=== PATIENT | male | born 1955 | race Asian ===

== ENCOUNTER 2018-07-02 13:44 | Inpatient (IN) | payer OTHER ==
[~2018-07-02] VITALS: Ht 175.3 cm; Wt 72.6 kg
[2018-07-02] MEDS ORDERED: LISINOPRIL-HCT1 EACH PO (14:08)
--- NOTE | 2018-07-02 14:48 | Diagnostic Imaging Report ---
EXAMINATION: CXR 2 VIEW - HOPD INDICATION: Weakness COMPARISON: None FINDINGS: AP view TUBES and LINES: None. LUNGS: Lungs are well inflated. Bandlike reticular opacity in the left upper lobe. No lobar consolidations or pulmonary edema. PLEURA: No pleural effusion or pneumothorax. HEART AND MEDIASTINUM: The cardiomediastinal silhouette is unremarkable.. BONES AND SOFT TISSUES: No acute osseous lesion. Soft tissues are unremarkable. UPPER ABDOMEN: No free air under the diaphragm. IMPRESSION: Indeterminate left upper lobe bandlike reticular opacity may reflect scarring, pneumonia, cannot exclude neoplasm. If patient is asymptomatic, recommend chest x-ray in 3 months to demonstrate stability. Otherwise, consider CT chest without contrast for further evaluation. Signed by: Dr. Nidia Ornelas M.D. on 07/02/2018 2:45 PM
--- NOTE | 2018-07-02 15:05 | NUR ---
RADIOLOGIST SPEAKING WITH DELGADO BARKER
--- NOTE | 2018-07-02 15:12 | Diagnostic Imaging Report ---
ADDENDUM #1 History:Weakness Comparison studies:None Technique: Axial images were obtained from the skull base to the vertex. Coronal and sagittal images reconstructed from the axial data. Intravenous contrast: None Dose modulation, iterative reconstruction, and/or weight based adjustment of the mA/kV was utilized to reduce the radiation dose to as low as reasonably achievable. Findings: Scalp/skull: No abnormalities. Extra-axial spaces: No masses. No fluid collections. Brain sulci: Mildly prominent. Ventricles: Mild compensatory dilatation. No hydrocephalus. Parenchyma: Small focal cortical based hypodensity at the right superior parietal lobule, without significant volume loss. Few hypodensities in the supratentorial white matter are small vessel ischemic changes. Cortical-based hypodensity at the left mid frontal gyrus with mild volume loss. No masses or hemorrhage. Sellar/suprasellar region: No abnormalities. Craniocervical junction: Patent foramen magnum. No Chiari one malformation. Incidental findings: Atherosclerotic calcifications in the carotid siphons . Mucosal thickening the bilateral ethmoid sinuses. Impression: Age indeterminant small infarct at the right superior parietal lobule. No intracranial hemorrhage. Chronic findings: 1. Mild generalized volume loss. 2. Mild supratentorial white matter small vessel ischemic changes. 3. 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 The above finding was reported and acknowledged by Dr. Seymour at 2:58 PM 07/02/2018 Signed by: DR Edwin Lees M.D. on 07/02/2018 3:57 PM ORIGINAL REPORT History:Weakness Comparison studies:None Technique: Axial images were obtained from the skull base to the vertex. Coronal and sagittal images reconstructed from the axial data. Intravenous contrast: None Dose modulation, iterative reconstruction, and/or weight based adjustment of the mA/kV was utilized to reduce the radiation dose to as low as reasonably achievable. Findings: Scalp/skull: No abnormalities. Extra-axial spaces: No masses. No fluid collections. Brain sulci: Mildly prominent. Ventricles: Mild compensatory dilatation. No hydrocephalus. Parenchyma: Small focal cortical based hypodensity at the left superior parietal lobule, without significant volume loss. Few hypodensities in the supratentorial white matter are small vessel ischemic changes. Cortical-based hypodensity at the left mid frontal gyrus with mild volume loss. No masses or hemorrhage. Sellar/suprasellar region: No abnormalities. Craniocervical junction: Patent foramen magnum. No Chiari one malformation. Incidental findings: Atherosclerotic calcifications in the carotid siphons . Mucosal thickening the bilateral ethmoid sinuses. Impression: Age indeterminant small infarct at the left superior parietal lobule. No intracranial hemorrhage. Chronic findings: 1. Mild generalized volume loss. 2. Mild supratentorial white matter small vessel ischemic changes. 3. 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 The above finding was reported and acknowledged by Dr. Seymour at 2:58 PM 07/02/2018 Signed by: DR Edwin Lees M.D. on 07/02/2018 3:08 PM
--- OUTSIDE RECORDS SUMMARY | 2018-07-02 15:46 | XMS REPORT ---
Author Author [facility] Address Unknown Phone Unavailable Care Team Providers Care Electronic Instrument Trades Worker Name Role Phone Roman SEYMOUR Unavailable Unavailable Problems This patient has no known problems. Allergies, Adverse Reactions, Alerts This patient has no known allergies or adverse reactions. Medications This patient has no known medications. Results Test Description Test Time Test Comments Text Results Atomic Results Result Comments CT BRAIN WO-HOPD 2018-07-02 14:59:00 [facility] [address] [address] Patient Name: AUSTIN BALDWIN MR #: [id number] : 1955 Age/Sex: 63/M Req #: [id number] Adm Physician: Ordered by: MUNIRA SEYMOUR MD Report #: [id number] Location: [facility] Room/Bed: Procedure: [id number] HOPD/CT BRAIN WO-HOPD Exam Date: Exam Time: REPORT STATUS: Signed History:Weakness Comparison studies:None Technique: Axial im ages were obtained from the skull base to the vertex. Coronal and sagittal images reconstructed from the axial data. Intravenous contrast: None Dose modulation, iterative reconstruction, and/or weight based adjustment of the mA/kV was utilized to reduce the radiation dose to as low as reasonably achievable. Findings: Scalp/skull: No abnormalities. Extra- axial spaces: No masses. No fluid collections. Brain sulci: Mildly prominent. Ventricles: Mild compensatory dilatation. No hydrocephalus. Parenchyma: Small focal cortical based hypodensity at the left superior parietal lobule, without significant volume loss. Few hypodensities in the supratentorial white matter are small vessel ischemic changes. Cortical-based hypodensity at the left mid frontal gyrus with mild volume loss. No masses or hemorrhage. Sellar/suprasellar region: No abnormalities. Craniocervical junction: Patent foramen magnum. No Chiari one malformation. Incidental f indings: Atherosclerotic calcifications in the carotid siphons . Mucosal thickening the bilateral ethmoid sinuses. Impression: Age indeterminant small infarct at the left superior parietal lobule. No intracranial hemorrhage. Chronic findings: 1. Mild generalized volume loss. 2. Mild supratentorial white matter small vessel ischemic changes. 3. 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 The above finding was reported and acknowledged by Dr. Seymour at 2:58 PM 07/02/2018 Signed by: DR Edwin Lees M.D. on 07/02/2018 3:08 PM Dictated By: EDWIN HILL MD [id number] Transcribed By: VIRGILIO on 07/02/18 1508 COPY TO: MUNIRA SEYMOUR MD [facility] 2018-07-02 14:43:[address] [address] Patient Name: AUSTIN BALDWIN MR #: [id number] : 1955 Age/Sex: 63/M Req #: [id number] Adm Physician: Ordered by: MUNIRA SEYMOUR MD Report #: [id number] Location: [facility] Room/Bed: Procedure: [id number] HOPD/CXR 2 VIEW - HOPD Exam Date: Exam Time: REPORT STATUS: Signed EXAMINATION: CXR 2 VIEW - HOPD INDICATION: Weaknes s COMPARISON: None FINDINGS: AP view TUBES and LINES: None. LUNGS: Lungs are well inflated. Bandlike reticular opacity in the left upper lobe. No lobar consolidations or pulmonary edema. PLEURA: No pleural effusion or pneumothorax. HEART AND MEDIASTINUM: The cardiomediastinal silhouette is unremarkable.. BONES AND SOFT TISSUES: No acute osseous lesion. Soft tissues are unremarkable. UPPER ABDOMEN: No free air under the diaphragm. IMPRESSION: Indeterminate left upper lobe bandlike reticular opacity may reflect scarring, pneumonia, cannot exclude neoplasm. If patient is asymptomatic, recommend chest x-ray in 3 months to demonstrate stability. Otherwise, consider CT chest without contrast for further evaluation. Signed by: Dr. Katerina Ash M.D. on 07/02/2018 2:45 PM Dictated By: KATERINA ASH MD 1445 Transcribed By: VIRGILIO on 07/02/18 1445 COPY TO: MUNIRA SEYMOUR MD
--- NOTE | 2018-07-02 15:50 | NUR ---
[facility] CALLED FOR TRANSPORT
--- NOTE | 2018-07-02 15:51 | NUR ---
SPOKE TO MATTHEW RAI FOR ACCEPTANCE
[2018-07-02] MEDS ORDERED: ASPIRIN 325 MG TAB EC PO ONE (16:00)
[2018-07-02 18:00] VITALS: BP 116/87
[2018-07-02] MEDS ORDERED: ACETAMINOPHEN 325 MG TAB PO PRN (18:30)
[2018-07-02] MEDS ORDERED: HYDRALAZINE HCL 20 MG/ML VIAL IV PRN (18:30)
[2018-07-02] MEDS ORDERED: ONDANSETRON HCL INJ 2MG/ML 2ML 2 MG/ML VIAL IV PRN (18:30)
[2018-07-02 19:00] VITALS: BP 114/90
[2018-07-02 20:00] VITALS: BP 106/84
[2018-07-02 21:04] VITALS: BP 121/86
[2018-07-02 22:00] VITALS: BP 105/82
[2018-07-02 23:00] VITALS: BP 113/76
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
[2018-07-02 23:58] LABS: CREATINE KINASE MB 1.2 ng/mL (0-5.0)
[2018-07-03] VITALS (20 sets, daily range): BP systolic 107–155; BP diastolic 75–109
[2018-07-03 04:50] LABS: BASOPHILS % 0.5 % (0.0-1.0); EOSINOPHILS # (AUTO) 0.4 (0.0-0.4); EOSINOPHILS % 7.1 % (0.0-6.0); HEMATOCRIT 45.2 % (38.2-49.6); HEMOGLOBIN 15.3 g/dL (14.0-18.0); LYMPHOCYTES # (AUTO) 1.8 (1.0-3.2); LYMPHOCYTES % 30.6 % (18.0-39.1); MEAN CORPUSCULAR HEMOGLOBIN 31.2 pg (28-32); MEAN CORPUSCULAR HGB CONC 33.8 g/dL (31-35); MEAN CORPUSCULAR VOLUME 92.1 fL (81-99); MONOCYTES # (AUTO) 0.7 (0.2-0.8); MONOCYTES % 11.5 % (4.4-11.3); NEUTROPHILS % 50.1 % (38.7-80.0); PLATELET COUNT 204 x10e3/uL (140-360); RED BLOOD COUNT 4.91 x10e6/uL (4.3-5.7)
[2018-07-03 05:06] LABS: CHOL/HDL RATIO 6.2 (3.9-4.7); MAGNESIUM 2.2 MG/DL (1.3-2.1)
[2018-07-03 05:10] LABS: ALANINE AMINOTRANSFERASE 33 IU/L (0-55); ALBUMIN 3.8 g/dL (3.5-5.0); ALBUMIN/GLOBULIN RATIO 0.8 (0.8-2.0); ALKALINE PHOSPHATASE 108 IU/L (40-150); ANION GAP 13.6 mmol/L (8-16); BLOOD UREA NITROGEN 16 mg/dL (7-26); BUN/CREATININE RATIO 14 (6-25); CALCIUM 10.1 mg/dL (8.4-10.2); CARBON DIOXIDE 27 mmol/L (22-29); CHLORIDE 103 mmol/L (98-107); CREATININE, SERUM 1.17 mg/dL (0.72-1.25); EST GLOMERULAR FILTRATION RATE > 60 ML/MIN (60-); GLUCOSE 97 mg/dL (74-118); POTASSIUM 5.6 mmol/L (3.5-5.1); SODIUM 138 mmol/L (136-145)
[2018-07-03 05:15] LABS: B-TYPE NATRIURETIC PEPTIDE2 25.5 pg/mL (0-100)
[2018-07-03 05:26] LABS: THYROID STIMULATING HORMONE 0.996 uIU/mL (0.350-4.940)
[2018-07-03] MEDS: FAMOTIDINE 20 MG TAB PO SCH ×2 (07:57→15:37)
[2018-07-03] MEDS: ASPIRIN 325 MG TAB PO SCH (09:00)
[2018-07-03] MEDS ORDERED: SOD POLYSTYRENE SULFONATE SUSP 15 GM/60 ML BTL PO ONE (09:30)
--- NOTE | 2018-07-03 10:00 | NUR ---
handheld telephone language line used to speak bulgarian to patient at all interactions.
--- NOTE | 2018-07-03 11:30 | NUR ---
dr. grace here to see patient. reviewed ct scan, is concerned about tuberculosis based on hx of tb, trouble sleeping, and low appetite. patient is from [facility]. patient to be placed on airborne precautions until bronchoscopy/biopsy tomorrow shows evidence ruling out tb.
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
--- NOTE | 2018-07-03 13:48 | Diagnostic Imaging Report ---
History: Headache, weakness Comparison studies: Head CT on 07/02/2018 Technique: Sagittal T2; axial DWI, FLAIR, MPGR, T1, Coronal FLAIR. Intravenous contrast: None Findings: Scalp: Normal in signal . No masses . Bone marrow: Normal in signal intensity. Extra-axial: No masses or fluid collections. Brain sulci: Appropriate for age. Ventricles: Normal in size . No hydrocephalus . Parenchyma: Acute, nonhemorrhagic, peripheral vascular insults (hyperintense on T2 FLAIR and associated with restricted diffusion) are centered in the right superior and inferior parietal lobules. An additional similar but smaller insult, near the hand motor area of the the right precentral gyrus at the vertex, probably explains patient's weakness. (series 4, image 23). Additional focal cortical and subcortical chronic insult in the left middle frontal gyrus are not associated with restricted diffusion. No masses, hemorrhage, acute or additional acute or chronic cortical ischemic insults. Suprasellar region: No abnormalities. Craniocervical junction: No abnormalities. Patent foramen magnum. No Chiari one malformation. Vessels: Normal flow-voids in the arteries and sinuses. IMPRESSION: 1. Focal, nonhemorrhagic peripheral right frontal precentral and parietal cortical insult at the vertex are presumed to be embolic to distal peripheral branches of the right MCA. 2. Chronic peripheral insults, in the left middle frontal gyrus at the vertex, may be have been embolic as well. 3. No additional intracranial abnormalities. Signed by: Dr. Sina Madden M.D. on 07/03/2018 1:45 PM
[2018-07-03] MEDS ORDERED: DEXTROSE 50% SYRINGE 50 ML IV PRN (14:00)
[2018-07-03] MEDS ORDERED: LISINOPRIL 10 MG TAB PO SCH (14:15)
[2018-07-03] MEDS: HYDROCHLOROTHIAZIDE 25 MG TAB PO SCH (15:36)
[2018-07-03] MEDS ORDERED: ONDANSETRON HCL 4 MG ORAL DISINTEGRATING TAB PO PRN (15:45)
[2018-07-03] MEDS: INSULIN REGULAR, HUMAN 100 UNIT/1 ML 3ML VIAL SQ SCH ×2 (15:48→21:39)
[2018-07-03] MEDS ORDERED: ENOXAPARIN SOD INJ 40 MG/0.4 ML SYR SC SCH (17:00)
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
--- NOTE | 2018-07-03 20:50 | Consultation ---
DATE OF CONSULTATION: Cardiology Consultation REASON FOR CONSULTATION: Abnormal cardiac enzymes. HISTORY OF PRESENT ILLNESS: This is a 63-year-old Thai man, who has been living in [facility] for approximately one year. He has a history of tuberculosis, which was treated and hypertension. He denies any cardiac history. His history taking was performed through his daughter at bedside. He denies any chest pain, shortness of breath, or palpitations. REVIEW OF SYSTEMS: A 12-point review of system was conducted, is negative otherwise as stated above in the HPI. PAST MEDICAL HISTORY: As stated above in the HPI. PAST SURGICAL HISTORY: None recent. PAST FAMILY HISTORY: No premature coronary artery disease or sudden cardiac . SOCIAL HISTORY: Prior tobacco use. ALLERGIES: NO KNOWN DRUG ALLERGIES. MEDICATIONS: See medications reconciliation form. PHYSICAL EXAMINATION: VITAL SIGNS: Temperature 98.5, heart rate 72, respirations 18, blood pressure is 123/90, and oxygen saturation is 100% on room air. GENERAL: Well appearing, well built, in no apparent distress. Alert and oriented x3. HEAD: Normocephalic, atraumatic. EYES: Extraocular muscles intact. Conjunctivae clear. NECK: No JVD. No bruits. CARDIOVASCULAR: Regular rate and rhythm. No murmurs. LUNGS: There are diminished breath sounds at the bases and at left apex. ABDOMEN: Soft, nontender, and nondistended. EXTREMITIES: No clubbing, cyanosis, or edema. VITAL SIGNS: 2+ pulses. SKIN: Warm, dry, and intact. NEUROLOGIC: No focal deficits noted. LABORATORY DATA: All reviewed, negative cardiac enzymes x1. A 12-lead electrocardiogram shows normal sinus rhythm with incomplete left bundle-branch block. LDL is 118, total cholesterol is 222, and triglycerides 339. IMPRESSION: 1. Weakness. 2. Tuberculosis, status post treatment. 3. Lung mass. 4. Hyperlipidemia. RECOMMENDATIONS: The patient has negative cardiac enzymes on presentation here. He does have an abnormal electrocardiogram showing incomplete left bundle-branch block. He does have elevated cholesterol, which will be treated with atorvastatin. We will check a 2D echocardiogram. Further recommendations to follow. Toy Grayson DO BM/MODL /[id number]
[2018-07-03] MEDS ORDERED: ATORVASTATIN 20 MG TAB PO SCH ×2 (21:00)
[2018-07-04] VITALS (20 sets, daily range): BP systolic 88–117; BP diastolic 70–85
[2018-07-04 04:49] LABS: BASOPHILS % 0.5 % (0.0-1.0); EOSINOPHILS # (AUTO) 0.3 (0.0-0.4); EOSINOPHILS % 4.4 % (0.0-6.0); HEMATOCRIT 43.9 % (38.2-49.6); HEMOGLOBIN 14.6 g/dL (14.0-18.0); LYMPHOCYTES % 27.2 % (18.0-39.1); MEAN CORPUSCULAR HEMOGLOBIN 30.8 pg (28-32); MEAN CORPUSCULAR HGB CONC 33.3 g/dL (31-35); MEAN CORPUSCULAR VOLUME 92.6 fL (81-99); MONOCYTES # (AUTO) 0.7 (0.2-0.8); MONOCYTES % 9.5 % (4.4-11.3); NEUTROPHILS # (AUTO) 4.2 (2.1-6.9); NEUTROPHILS % 58.1 % (38.7-80.0); PLATELET COUNT 219 x10e3/uL (140-360); RED BLOOD COUNT 4.74 x10e6/uL (4.3-5.7); RED CELL DISTRIBUTION WIDTH 12.8 % (11.7-14.4)
[2018-07-04 05:09] LABS: CALCIUM 9.7 mg/dL (8.4-10.2); CREATININE, SERUM 1.27 mg/dL (0.72-1.25); MAGNESIUM 2.3 MG/DL (1.3-2.1)
[2018-07-04] MEDS: FAMOTIDINE 20 MG TAB PO SCH ×3 (07:30→16:00)
[2018-07-04] MEDS: INSULIN REGULAR, HUMAN 100 UNIT/1 ML 3ML VIAL SQ SCH ×4 (07:30→20:54)
[2018-07-04] MEDS: HYDROCHLOROTHIAZIDE 25 MG TAB PO SCH (08:18)
[2018-07-04] MEDS: ASPIRIN 325 MG TAB PO SCH ×2 (08:18→09:00)
[2018-07-04] MEDS ORDERED: LISINOPRIL 20 MG TAB PO SCH (09:00)
--- NOTE | 2018-07-04 09:39 | NUR ---
ST Note: Order for bedside swallow eval noted. Per Paulina RN, pt NPO for bronch. Will defer eval until tomorrow 07/05/18.
[2018-07-04] MEDS ORDERED: ACETYLCYSTEINE 200 MG/ML 4ML VIAL ONE (12:59)
[2018-07-04] MEDS ORDERED: LIDOCAINE HCL 4% 50 ML BTL ONE (12:59)
[2018-07-04] MEDS ORDERED: LIDOCAINE HCL 2% 30 ML TUBE ONE (13:00)
[2018-07-04] MEDS ORDERED: OXYMETAZOLINE HCL 0.05% NAS 1 SPRAY BTL ONE (13:00)
[2018-07-04] MEDS ORDERED: ENOXAPARIN SOD INJ 40 MG/0.4 ML SYR SC SCH (15:15)
[2018-07-04] MEDS: ENOXAPARIN INJ 80 MG/0.8 ML SYR SC SCH (16:00)
[2018-07-04] MEDS ORDERED: WARFARIN SOD 5 MG TAB PO SCH (16:00)
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
--- NOTE | 2018-07-04 18:00 | NUR ---
PATIENT TRANSFERRED FROM ICU [id number] TO ROOM 288 PER WHEELCHAIR AT 1759. PATIENT IS AWAKE, ALERT, AND IN STABLE CONDITION WITH NO S/S OF RESPIRATORY DISTRESS. PATIENT DENIES ANY PAIN. AND DAUGHTER PRESENT AT BEDSIDE. CALL LIGHT IS WITHIN REACH, PATIENT INSTRUCTED TO CALL FOR ASSISTANCE NEEDED.
[2018-07-04] MEDS ORDERED: LIDOCAINE HCL 2% LOCAL INJ 5 ML SDV VIAL INJ ONE (18:08)
[2018-07-04] MEDS ORDERED: SEVOFLURANE INHAL SOLN 250 ML PEN BTL ONE (18:08)
[2018-07-04] MEDS ORDERED: ONDANSETRON HCL INJ 2MG/ML 2ML 2 MG/ML VIAL ONE (18:08)
[2018-07-04] MEDS ORDERED: PHENYLEPHRINE HCL 1% 10 MG/ML VIAL ONE (18:08)
[2018-07-04] MEDS ORDERED: PROPOFOL IV EMULSION 10 MG/ML 20 ML VIAL ONE (18:08)
--- NOTE | 2018-07-04 19:28 | NUR ---
PATIENT IS IN STABLE CONDITION WITH NO S/S OF RESPIRATORY DISTRESS. NO PAIN VOICED. URINAL PROVIDED TO PATIENT FOR EVENING TIME. CALL LIGHT IS WITHIN REACH, PATIENT INSTRUCTED TO CALL FOR ASSISTANCE NEEDED. BEDSIDE REPORT GIVEN TO ONCOMING NURSE.
--- NOTE | 2018-07-04 19:35 | Progress Note ---
DATE: SUBJECTIVE: The patient is feeling well. Denies any chest pain or shortness of breath. OBJECTIVE: VITAL SIGNS: Temperature is 97.5, heart rate is 77, respirations 16, blood pressure is 117/82, and oxygen saturation 99% on room air. GENERAL: Well appearing, well built, in no apparent distress. Alert and oriented x3. HEAD: Normocephalic, atraumatic. LUNGS: Diminished breath sounds at the apex. CARDIOVASCULAR: Regular rate and rhythm. No murmurs. ABDOMEN: Soft, nontender, and nondistended. CARDIOVASCULAR MEDICATIONS: Reviewed. LABORATORY DATA: Reviewed. Creatinine 1.27. IMAGING: MRI of the brain shows a focal nonhemorrhagic right peripheral frontal cortical insult with chronic peripheral insults. A 2D echocardiogram revealed severe reduction in systolic function with estimated ejection fraction approximately 20% with no significant valvular abnormalities. IMPRESSION: 1. Acute likely on chronic systolic congestive heart failure with an ejection fraction less than 20%. 2. Cerebrovascular accident. 3. Abnormal electrocardiogram. 4. Hypertension. 5. Hyperlipidemia. RECOMMENDATIONS: The patient has an acute cerebrovascular accident, likely embolic from the left ventricle. We will try to get a Definity echocardiogram study to assess for left ventricular thrombus. Continue current cardiovascular medications. Discussed with primary team about anticoagulation. The patient likely will need cardiac catheterization to assess for coronary artery disease given his risk factors and low ejection fraction. DO ALEXX Martínez/MODL /[id number]
--- NOTE | 2018-07-04 19:46 | NUR ---
RECEIVED PT IN BED AOX3 .NO C/P PT IS STABLE .FAMILY AT THE BEDSIDE AND DAUGHTER TRANSLATED WHAT HE SAID .CALL LIGHT WITH IN REACH .CONTINUE TO MONITOR
[2018-07-04] MEDS ORDERED: MIDAZOLAM HCL 2 MG/2 ML VIAL ONE (19:48)
[2018-07-04] MEDS ORDERED: FENTANYL CITRATE/PF 100MCG/2 ML INJ ONE (19:48)
[2018-07-04] MEDS: ATORVASTATIN 40 MG TAB PO SCH (20:54)
--- NOTE | 2018-07-04 21:00 | Operative Report ---
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 POSTOPERATIVE DIAGNOSIS: Bronchial polyp in the right mainstem bronchus. CONSENT: Consent was obtained from the patient. ANESTHESIA: Anesthesia provided MAC sedation with laryngeal mask airway. DESCRIPTION OF THE PROCEDURE: The patient was placed in a supine position. A laryngeal mask airway was used to secure the airway. The scope was introduced through the laryngeal mask airway. The upper airway and glottis were normal. The trachea mucosa appeared normal. The left tracheobronchial tree was examined. The left lower lobe and left upper lobe were all normal to the subsegmental level. There were no endobronchial lesions. Washings were obtained from the left upper lobe. Brushing for microbiology was also obtained from the left upper lobe. The scope was then repositioned into the right tracheobronchial tree. The patient had a benign-appearing clear looking polyp in the right mainstem bronchus. There were no other endobronchial lesions in the right upper lobe, right middle lobe, or right lower lobe. Endobronchial biopsies of the endobronchial lesion were obtained x3. Cytology brushing was then obtained. Washings were also done of the right upper lobe. ESTIMATED BLOOD LOSS: None. COMPLICATIONS: None. Edilberto Crenshaw MD H/MODL /[id number]
[2018-07-05] VITALS (7 sets, daily range): BP systolic 109–136; BP diastolic 64–82
--- NOTE | 2018-07-05 06:00 | NUR ---
PT RESTED DURING THE NIGHT .DENIES PAIN NO ACUTE DISTRESS NOTED .CALL LIGHT WITH IN REACH.CONTINUE TO MONITOR
[2018-07-05] MEDS: ENOXAPARIN INJ 80 MG/0.8 ML SYR SC SCH ×2 (06:03→17:04)
[2018-07-05 06:52] LABS: BASOPHILS % 0.5 % (0.0-1.0); EOSINOPHILS # (AUTO) 0.3 (0.0-0.4); EOSINOPHILS % 4.7 % (0.0-6.0); HEMATOCRIT 42.1 % (38.2-49.6); HEMOGLOBIN 14.2 g/dL (14.0-18.0); MEAN CORPUSCULAR HEMOGLOBIN 31.1 pg (28-32); MEAN CORPUSCULAR HGB CONC 33.7 g/dL (31-35); MEAN CORPUSCULAR VOLUME 92.1 fL (81-99); MONOCYTES # (AUTO) 0.6 (0.2-0.8); MONOCYTES % 9.6 % (4.4-11.3); NEUTROPHILS # (AUTO) 3.2 (2.1-6.9); NEUTROPHILS % 52.9 % (38.7-80.0); PLATELET COUNT 201 x10e3/uL (140-360); RED BLOOD COUNT 4.57 x10e6/uL (4.3-5.7); RED CELL DISTRIBUTION WIDTH 12.9 % (11.7-14.4)
--- NOTE | 2018-07-05 06:59 | NUR ---
PATIENT IS AWAKE AND IN STABLE CONDITION WITH NO S/S OF RESPIRATORY DISTRESS. NO PAIN VOICED. CALL LIGHT IS WITHIN REACH, PATIENT INSTRUCTED TO CALL FOR ASSISTANCE NEEDED.
[2018-07-05 07:05] LABS: INR 1.09; PROTHROMBIN TIME 14.6 seconds (11.9-14.5)
--- NOTE | 2018-07-05 07:10 | NUR ---
REPORT GIVEN TO THE ONCOMING NURSE
[2018-07-05 07:23] LABS: CALCIUM 9.4 mg/dL (8.4-10.2); CREATININE, SERUM 1.31 mg/dL (0.72-1.25); MAGNESIUM 2.4 MG/DL (1.3-2.1)
[2018-07-05] MEDS: INSULIN REGULAR, HUMAN 100 UNIT/1 ML 3ML VIAL SQ SCH ×4 (07:30→20:30)
[2018-07-05] MEDS: FAMOTIDINE 20 MG TAB PO SCH ×2 (08:54→17:03)
[2018-07-05] MEDS: HYDROCHLOROTHIAZIDE 25 MG TAB PO SCH (08:54)
[2018-07-05] MEDS: ASPIRIN 325 MG TAB PO SCH (08:54)
--- NOTE | 2018-07-05 13:45 | NUR ---
WENT TO SEE PT TO GIVE SELF PAY PACKET WITH [employer]. DAUGHTER IN [place] HAS BENEFITS WITH [employer], GOT COPY OF CARD AND TOOK TO BUSINESS OFFICE. PT DAUGHTER STATES RENEWED June BUT HAVE NOT RECEIVED NEW CARD. GAVE RESOURCES SINCE DAUGHTER SPOKE OF FIXED INCOME TO FOLLOW UP IN COMMUNITY TO SEE IF QUALIFY.
[2018-07-05] MEDS ORDERED: WARFARIN SOD 5 MG TAB PO SCH (17:00)
--- NOTE | 2018-07-05 19:17 | NUR ---
PATIENT IS IN STABLE CONDITION WITH NO S/S OF RESPIRATORY DISTRESS. NO PAIN VOICED. BED ALARM ON. CALL LIGHT IS WITHIN REACH, PATIENT INSTRUCTED TO CALL FOR ASSISTANCE NEEDED. BEDSIDE REPORT GIVEN TO ONCOMING NURSE.
--- NOTE | 2018-07-05 19:25 | NUR ---
RECEIVED PT IN BED AOX3 .NO ACUTE DISTRESS NOTED .KELLY PAIN .CALL LIGHT WITH IN REACH.CONTINUE TO MONITOR
[2018-07-05] MEDS: ATORVASTATIN 40 MG TAB PO SCH (20:30)
--- NOTE | 2018-07-05 21:10 | Progress Note ---
DATE: Cardiology Progress Note SUBJECTIVE: The patient is feeling well. Denies any chest pain or shortness of breath. OBJECTIVE: VITAL SIGNS: Temperature is 98.2, heart rate is 62, respirations are 20, blood pressure is 105/71, and oxygen saturation is 100% on room air. GENERAL: Well-appearing, well-built, in no apparent distress. CARDIOVASCULAR: Regular rate and rhythm. No murmurs. LUNGS: Clear to auscultation. ABDOMEN: Soft, nontender, nondistended. EXTREMITIES: No edema. CARDIOVASCULAR MEDICATIONS: Reviewed. LABORATORY DATA: Creatinine 1.3. IMPRESSION: 1. Acute on chronic systolic congestive heart failure. 2. Cerebrovascular accident. 3. Abnormal electrocardiogram. 4. Hypertension. 5. Hyperlipidemia. RECOMMENDATIONS: The patient likely had his cerebrovascular accident from embolic sources from his left ventricle. The patient will require cardiac catheterization to evaluate his coronary anatomy, given severe left ventricular systolic dysfunction. We will avoid MESERET inhibitor initiation at this point in time given rise in his creatinine. We will start beta blockers. Toy Grayson DO BM/MODL /[id number]
[2018-07-06] VITALS (8 sets, daily range): BP systolic 125–140; BP diastolic 79–88
--- NOTE | 2018-07-06 05:51 | NUR ---
PT RESTED DURING THE SHIFT DENIES PAIN .REFUSED THE BATH AND BED ALARM.CALL LIGHT WITH IN REACH .CONTINUE TO MONITOR
[2018-07-06 06:53] LABS: INR 2.05; PROTHROMBIN TIME 23.8 seconds (11.9-14.5)
[2018-07-06 06:59] LABS: CALCIUM 9.9 mg/dL (8.4-10.2); CREATININE, SERUM 1.36 mg/dL (0.72-1.25); PHOSPHORUS 3.4 MG/DL (2.3-4.7)
--- NOTE | 2018-07-06 07:11 | NUR ---
REPORT GIVEN TO THE ON COMING NURSE
[2018-07-06] MEDS: INSULIN REGULAR, HUMAN 100 UNIT/1 ML 3ML VIAL SQ SCH ×4 (07:30→21:32)
[2018-07-06] MEDS: ASPIRIN 325 MG TAB PO SCH (09:27)
[2018-07-06] MEDS: FAMOTIDINE 20 MG TAB PO SCH ×3 (09:27→16:17)
[2018-07-06] MEDS: CARVEDILOL 3.125 MG TAB PO SCH ×2 (09:28→16:18)
[2018-07-06] MEDS: HYDROCHLOROTHIAZIDE 25 MG TAB PO SCH (09:33)
--- NOTE | 2018-07-06 10:40 | NUR ---
Called Dr. Teresa Grayson, clarified order For Lovenox am dose, received orders to give today's dose morning dose of Lovenox, and Hold tonight's dose for heart catheterization tomorrow.
[2018-07-06] MEDS ORDERED: ENOXAPARIN INJ 80 MG/0.8 ML SYR SC ONE (12:30)
[2018-07-06] MEDS ORDERED: BISACODYL 5 MG TAB EC PO ONE (14:45)
[2018-07-06] MEDS ORDERED: PHYTONADIONE 10 MG/ML AMP IM ONE (15:00)
[2018-07-06] MEDS ORDERED: PHYTONADIONE 1 MG/0.5 ML AMP IM ONE (15:00)
--- NOTE | 2018-07-06 16:52 | NUR ---
Made Dr. Stefania Carrasco's DIRECTOR OF EDUCATION AND TRAINING aware orders received by Dr. Teresa Grayson hold warfarin, until further notice and not to give Vitamin K.
[2018-07-06] MEDS ORDERED: WARFARIN SOD 5 MG TAB PO SCH (17:00)
--- NOTE | 2018-07-06 19:15 | NUR ---
Bedside rounds completed with morning nurse. Pt alert to name. Speaks Maldivian. Lying supine in bed HOB 30 degrees. Denies. pain at this time. Call taylor within reach. Will continue to monitor.
--- NOTE | 2018-07-06 20:00 | NUR ---
Informed consent signed via translation line. Pt verbalized understanding. No further questions or concerns. Call taylor within reach.
--- NOTE | 2018-07-06 20:21 | Progress Note ---
DATE: Cardiology Progress Note SUBJECTIVE: The patient is feeling well. Denies any chest pain or shortness of breath. OBJECTIVE: VITAL SIGNS: Temperature is 97.1, heart rate is 61, respirations are 20, blood pressure is 140/87, ox saturation 100% on room air. GENERAL: Well-appearing, well-built, no apparent distress. CARDIOVASCULAR: Regular rate and rhythm. LUNGS: Clear to auscultation. ABDOMEN: Soft, nontender, nondistended. EXTREMITIES: No edema. LABORATORY DATA: Reviewed. Hemoglobin 14.2, creatinine 1.36. INR is 2.05. IMPRESSION: 1. Acute on chronic systolic congestive heart failure. 2. Cerebral vascular accident. 3. Abnormal electrocardiogram. 4. Hypertension. 5. Hyperlipidemia. RECOMMENDATIONS: We will proceed with cardiac catheterization tomorrow as given severe left ventricular systolic function. Hold anticoagulation at this point in time. We will require MESERET inhibitor initiation, however, we will hold at this point in time given rise in his creatinine. Continue Coreg. Toy Grayson DO BM/MODL /[id number]
[2018-07-06] MEDS: ATORVASTATIN 40 MG TAB PO SCH (21:25)
[2018-07-07] VITALS (19 sets, daily range): BP systolic 112–146; BP diastolic 66–99
--- NOTE | 2018-07-07 03:25 | NUR ---
Labs drawn for 0300 blood work, Pt tolerated well.
[2018-07-07 03:33] LABS: BASOPHILS % 0.3 % (0.0-1.0); EOSINOPHILS # (AUTO) 0.3 (0.0-0.4); EOSINOPHILS % 5.3 % (0.0-6.0); HEMATOCRIT 43.4 % (38.2-49.6); HEMOGLOBIN 14.9 g/dL (14.0-18.0); LYMPHOCYTES # (AUTO) 1.7 (1.0-3.2); LYMPHOCYTES % 28.6 % (18.0-39.1); MEAN CORPUSCULAR HEMOGLOBIN 30.9 pg (28-32); MEAN CORPUSCULAR HGB CONC 34.3 g/dL (31-35); MONOCYTES # (AUTO) 0.5 (0.2-0.8); MONOCYTES % 8.8 % (4.4-11.3); NEUTROPHILS # (AUTO) 3.4 (2.1-6.9); NEUTROPHILS % 56.8 % (38.7-80.0); PLATELET COUNT 204 x10e3/uL (140-360); RED BLOOD COUNT 4.82 x10e6/uL (4.3-5.7); RED CELL DISTRIBUTION WIDTH 12.6 % (11.7-14.4)
[2018-07-07 03:51] LABS: BLOOD UREA NITROGEN 23 mg/dL (7-26); BUN/CREATININE RATIO 20 (6-25); CALCIUM 9.7 mg/dL (8.4-10.2); CARBON DIOXIDE 27 mmol/L (22-29); CHLORIDE 97 mmol/L (98-107); CREATININE, SERUM 1.13 mg/dL (0.72-1.25); EST GLOMERULAR FILTRATION RATE > 60 ML/MIN (60-); GLUCOSE 106 mg/dL (74-118); MAGNESIUM 2.2 MG/DL (1.3-2.1); SODIUM 134 mmol/L (136-145)
[2018-07-07 06:34] LABS: INR 2.45; PROTHROMBIN TIME 27.3 seconds (11.9-14.5)
[2018-07-07] MEDS: FAMOTIDINE 20 MG TAB PO SCH ×2 (07:30→17:49)
[2018-07-07] MEDS: INSULIN REGULAR, HUMAN 100 UNIT/1 ML 3ML VIAL SQ SCH ×4 (07:30→21:00)
[2018-07-07] MEDS: HYDROCHLOROTHIAZIDE 25 MG TAB PO SCH (08:56)
[2018-07-07] MEDS: ASPIRIN 325 MG TAB PO SCH (08:56)
[2018-07-07] MEDS: CARVEDILOL 3.125 MG TAB PO SCH ×2 (08:56→17:49)
[2018-07-07] MEDS ORDERED: VERAPAMIL HCL 2.5 MG/ML 2 ML VIAL ONE ×2 (09:15→12:23)
[2018-07-07] MEDS ORDERED: FENTANYL CITRATE/PF 100MCG/2 ML INJ ONE ×2 (09:15→12:24)
[2018-07-07] MEDS ORDERED: LIDOCAINE HCL 2% LOCAL 20 ML VIAL ONE ×2 (09:15→12:24)
[2018-07-07] MEDS ORDERED: MIDAZOLAM HCL 2 MG/2 ML VIAL ONE ×2 (09:15→12:24)
[2018-07-07] MEDS ORDERED: HEPARIN SOD/SOD CHLORIDE 2,000 ML ONE ×2 (09:16→12:24)
[2018-07-07] MEDS ORDERED: IOPAMIDOL 370 MG/ML 200 ML INFUS..BTL INJ ONE ×2 (09:16→12:24)
[2018-07-07] MEDS ORDERED: SODIUM CHLORIDE 0.9% 1000ML 1,000 ML ONE ×2 (09:16→12:25)
--- NOTE | 2018-07-07 09:40 | NUR ---
Patient left the floor for qc lab technician
[2018-07-07] MEDS ORDERED: HEPARIN SOD (PORCINE) 1000 UNIT/ML 30ML ONE (12:23)
[2018-07-07] MEDS ORDERED: NITROGLYCERIN/D5W 200 MCG/ML 250 ML ONE (12:25)
--- NOTE | 2018-07-07 14:09 | NUR ---
1409 Received pt in Rm #9 Handoff from DEANNA Bailey Identifierx2. Back to baseline orientation. Received 1versed and 25mg Fentanyl. 9000heparin 1346 Act 448. Pt had [facility] Dr Kenan Raymond with IVUS. Rt TR band approach noted w/o gross signs of pain,pallor. Bilateral PP present x4Dp/PT Doppler only. Bilateral feet cool to touch.Findings discussed with family per MD. Monitor NSR. Respiration regular on RA. Sats 100%.Abdomen soft and non tender denies necessity to defecate or urinate. Remains NPO. Rt forearm 18g iv ,500cc NS infusing at 100cchr. No signs of pain infiltration.Family remain at bedside. Denies c/o CP or SOB. Pt and family speak Cantonese /Upper Sorbian dialect and require [employer] communication line. ds/rn
--- NOTE | 2018-07-07 14:45 | NUR ---
[address] Kenan larson to give finger food tray. Awaiting disposition of care. NO gross signs pain,pallor,pressure or dysrhythmia. TR band titration initiated (12cc Balloon) -2cc Positive 10cc Adequate radial pulse. No signs of hematoma or bleeding. ds/rn
--- NOTE | 2018-07-07 16:09 | NUR ---
Patient is still off the floor in laboratory technician
--- NOTE | 2018-07-07 16:40 | NUR ---
1640 Dr Grayson with hand held language line [id number] did Discuss with Daughter and Pt at bedside all apparent question answered completely regarding POC and transfer of pt to higher level of care.steel division supervisor Altaf HUERTA notified and MOT in progress. juan/kimberley
--- NOTE | 2018-07-07 16:45 | NUR ---
1645pm TR band titration completed.(12c air removed from balloon) Sterile 2x2 dressing with Tegaderm and Coban in place with arm splint. Positive radial pulse. Tr band an post teaching completed and copied of teaching aid on chart sign by family member. Aware of importance not to use right arm. Phoned report to Olivia HUERTA floor nurse Tel on pt and transfer per bed ds/rn
[2018-07-07] MEDS ORDERED: WARFARIN SOD 5 MG TAB PO SCH (17:00)
--- NOTE | 2018-07-07 17:00 | NUR ---
1700 Transferred pt back to floor care with face to face handoff to Melody HUERTA. Aware of disposition issues. Daughter at bedside and case management being made aware of transfer per Olivia HUERTA.Vs stable Rt TRband off with stasis achieved at 1645pm. Co band and splint in place. Pt and family aware of importance to keep wrist splint on and call for help. Left pt room with RN at bedside care. Side railsup,call light at bedside and bed in low position. Pt with tele on. Report to telemetry room ,SR and awaiting transfer to higher level for surgical assessment per Dr Grayson request. ds/rn
--- NOTE | 2018-07-07 17:04 | NUR ---
Received report from laboratory equipment cleaner, spoke to DEANNA Rene. Patient will be coming to room 288. It was reported by DEANNA Rene that patient is going to need to be transferred to a higher level of care for bypass surgery but Dr. Grayson is working on finding accepting surgeon. Will notify electrician apprentice powerhouse.
--- NOTE | 2018-07-07 19:10 | NUR ---
Completed rounds with morning nurse. Pt alert to name. Speaks [place]ib[place]ian. Sitting at bedside in recliner. Cantu-Nicholson Faces pain scale, no pain noted. Call taylor within reach. Will continue to monitor.
--- NOTE | 2018-07-07 19:16 | Progress Note ---
DATE: Cardiology Progress Note SUBJECTIVE: The patient is feeling well. Denies any chest pain or shortness of breath. OBJECTIVE: VITAL SIGNS: Temperature is 96, heart rate 76, respirations 20, blood pressure is 121/94, and oxygen saturation 99% on room air. GENERAL: Well-appearing, well-built, no apparent distress. CARDIOVASCULAR: Regular rate and rhythm. LUNGS: Clear to auscultation. ABDOMEN: Soft, nontender, nondistended. EXTREMITIES: No edema. LABORATORY DATA: Reviewed. Coronary angiography revealed significant dissection throughout the proximal to mid LAD involving a medium to large caliber diagonal branch. IMPRESSION: 1. Acute on chronic systolic congestive heart failure. 2. Cerebrovascular accident. 3. Spontaneous coronary artery dissection. 4. Hypertension. 5. Hyperlipidemia. RECOMMENDATIONS: The patient has a complex anatomy on IVUS imaging. I feel stenting likely will occlude the diagonal branch which is a medium to large caliber vessel. Given his left ventricular systolic dysfunction, coronary artery disease, and presumed left ventricular thrombus, the patient likely would benefit greater from bypass surgery rather than medical management. Continue aspirin. Resume anticoagulation. Hold warfarin at this point in time and anticoagulate with Lovenox alone. Continue Coreg and we will initiate MESERET inhibitors soon. The patient likely will need to be transferred to either [facility] or [facility] given the fact that he is unfunded. We will continue to follow along with. DO ALEXX Martínez/ELTON /[id number]
[2018-07-07] MEDS: ATORVASTATIN 40 MG TAB PO SCH (21:00)
[2018-07-08] VITALS: BP 127/75
--- NOTE | 2018-07-08 00:23 | Operative Report ---
DATE OF PROCEDURE: SURGEON: Toy Grayson DO PROCEDURES PERFORMED: 1. Conscious sedation, 30 minutes. 2. Selective coronary angiography x2. 3. Intravascular ultrasound. 4. Percutaneous transluminal angioplasty of the left anterior descending coronary artery. PREPROCEDURE DIAGNOSIS: Acute congestive heart failure. POSTPROCEDURE DIAGNOSIS: Spontaneous coronary artery dissection, likely chronic. ESTIMATED BLOOD LOSS: Less than 20 mL. SPECIMENS REMOVED: None. PROCEDURE IN DETAIL: After informed consent was obtained, the patient was brought to the cardiac catheterization laboratory in a fasting and nonsedated state. Bilateral groins and right wrist were prepped and draped in the usual sterile fashion. The right wrist was anesthetized with local anesthesia with lidocaine. Using micropuncture needle, the right radial artery was accessed via modified Seldinger technique and a 6-Marshallese sheath was placed. Diagnostic coronary angiography was performed using a TIG catheter. This revealed significant lesion in the LAD and further interrogation was performed. The left main was cannulated with an XB LAD 3 guide catheter. Diagnostic imaging revealed either a spontaneous dissection or thrombus. Given the fact that the patient has an LV thrombus, distal embolization was considered differential diagnosis for the lesion. I crossed a Luge wire into the first diagonal branch and a Whisper wire into the distal LAD. I attempted a manual aspiration thrombectomy without success. I performed balloon angioplasty with no resolution of the hazy lesion in the LAD and diagonal. I performed intravascular ultrasound, which revealed a true and false lumen. The wire was within the true lumen and there was a chronic septum in between the two lumens. At this time, the decision was made to not further intervene on the lesion. All wires were removed. Hemostasis was achieved via TR band. The patient tolerated the procedure well with no immediate complications, transferred back to his room in stable condition. PROCEDURE FINDINGS: 1. Left main coronary artery is patent without significant disease. 2. The proximal to midportion of the LAD is hazy with linear radiolucency, which involves the takeoff of a medium caliber diagonal branch. 3. The left circumflex coronary artery provides two obtuse marginal vessels with diffuse luminal irregularities. 4. The right coronary artery is a large dominant vessel with a large posterolateral branching network. There is sluggish flow in the distal RCA. IMPRESSION: 1. Coronary artery dissection involving left anterior descending and diagonal branch. 2. Congestive heart failure with systolic dysfunction. 3. Left ventricular thrombus. RECOMMENDATIONS: Given the fact the patient has multiple comorbidities, severe coronary artery dissection involving multiple branches with systolic dysfunction and left ventricular thrombus, likely will benefit greater from bypass surgery. The patient will need to be transferred to a facility that can provide this care. Continue anticoagulation and aspirin. We will also continue optimal medical therapy for his heart failure. DO ALEXX Martínez/ELTON /[id number]
[2018-07-08 04:00] VITALS: BP 111/76
[2018-07-08 04:18] LABS: BASOPHILS % 0.3 % (0.0-1.0); EOSINOPHILS # (AUTO) 0.3 (0.0-0.4); EOSINOPHILS % 4.7 % (0.0-6.0); HEMATOCRIT 42.2 % (38.2-49.6); HEMOGLOBIN 14.6 g/dL (14.0-18.0); LYMPHOCYTES # (AUTO) 1.7 (1.0-3.2); LYMPHOCYTES % 24.9 % (18.0-39.1); MEAN CORPUSCULAR HEMOGLOBIN 30.9 pg (28-32); MEAN CORPUSCULAR HGB CONC 34.6 g/dL (31-35); MEAN CORPUSCULAR VOLUME 89.4 fL (81-99); MONOCYTES # (AUTO) 0.6 (0.2-0.8); MONOCYTES % 8.6 % (4.4-11.3); NEUTROPHILS # (AUTO) 4.1 (2.1-6.9); NEUTROPHILS % 61.2 % (38.7-80.0); PLATELET COUNT 217 x10e3/uL (140-360); RED BLOOD COUNT 4.72 x10e6/uL (4.3-5.7); RED CELL DISTRIBUTION WIDTH 12.6 % (11.7-14.4)
[2018-07-08 04:30] LABS: ANION GAP 13.9 mmol/L (8-16); BLOOD UREA NITROGEN 24 mg/dL (7-26); BUN/CREATININE RATIO 22 (6-25); CALCIUM 9.6 mg/dL (8.4-10.2); CARBON DIOXIDE 24 mmol/L (22-29); CHLORIDE 98 mmol/L (98-107); CREATININE, SERUM 1.11 mg/dL (0.72-1.25); EST GLOMERULAR FILTRATION RATE > 60 ML/MIN (60-); GLUCOSE 107 mg/dL (74-118); MAGNESIUM 2.3 MG/DL (1.3-2.1); POTASSIUM 3.9 mmol/L (3.5-5.1); SODIUM 132 mmol/L (136-145)
[2018-07-08] MEDS: ALBUTEROL/IPRATROPIUM 3 ML NEB NEB SCH ×4 (07:00→23:40)
[2018-07-08] MEDS: INSULIN REGULAR, HUMAN 100 UNIT/1 ML 3ML VIAL SQ SCH ×4 (07:30→20:33)
[2018-07-08 07:58] VITALS: BP 121/86
--- NOTE | 2018-07-08 08:00 | NUR ---
DR. KNOTT ORDERED STRESS TEST FOR PATIENT. PT ONLY [place] [place]. CONSENT WAS SIGNED BY DAUGHTER DUE TO PT HAVING A CAST ON RIGHT HAND/WRIST DUE TO HEART CATH OF THE RIGHT RADIAL ARTERY. NUCLEAR PHYSICS PROFESSOR LINE WAS USED TO TRANSLATE CONSENT INFORMATION TO DAUGHTER AND PATIENT.
[2018-07-08] MEDS: CARVEDILOL 3.125 MG TAB PO SCH ×2 (09:00→16:17)
[2018-07-08] MEDS ORDERED: REGADENOSON 0.4 MG/5 ML SYR IV ONE (09:08)
[2018-07-08] MEDS: ASPIRIN 325 MG TAB PO SCH (09:42)
[2018-07-08] MEDS: HYDROCHLOROTHIAZIDE 25 MG TAB PO SCH (09:42)
[2018-07-08] MEDS: FAMOTIDINE 20 MG TAB PO SCH ×2 (09:43→16:10)
[2018-07-08] MEDS: GUAIFENESIN 600MG/DEXTROMETHORPHAN 30MG TABSR PO SCH ×2 (09:48→20:41)
[2018-07-08] MEDS: CEFTRIAXONE SOD 1 GM/NS 50 ML 50 ML IV SCH (09:48)
[2018-07-08] MEDS ORDERED: SODIUM CHLORIDE 0.9% 250ML 250 ML ONE (09:49)
[2018-07-08 10:26] LABS: INR 1.77; PROTHROMBIN TIME 21.3 seconds (11.9-14.5)
--- NOTE | 2018-07-08 10:30 | NUR ---
PT WAS TAKEN DOWNSTAIRS FOR STRESS TEST. CONSENT SIGNED. PATIENT MAINTAINED NPO PER DR. KNOTT'S ORDER.
[2018-07-08 13:17] VITALS: BP 121/86
--- NOTE | 2018-07-08 13:23 | NUR ---
Pt was out of the room for stress test. Will revisit in the AM.
--- NOTE | 2018-07-08 14:00 | NUR ---
PT IS BACK FROM STRESS TEST
[2018-07-08 15:25] VITALS: BP 130/82
--- NOTE | 2018-07-08 16:31 | NUR ---
LIFE VEST ORDERED PER DR. KNOTT. PRINT ORDER AND GAVE TO NURSE METER REPAIRER.
--- NOTE | 2018-07-08 19:34 | NUR ---
PT IN BED WITH NO S/S OF DISTRESS. CALL RAIN WITHIN REACH.
--- NOTE | 2018-07-08 19:38 | Progress Note ---
DATE: Cardiology Progress Note SUBJECTIVE: The patient feels well. Denies any chest pain, shortness of breath, or palpitations. OBJECTIVE: VITAL SIGNS: Temperature is 97.4, heart rate is 70, respirations are 18, blood pressure is 130/82, ox saturation 100% on room air. GENERAL: Well appearing, well built, no apparent distress. CARDIOVASCULAR: Regular rate and rhythm. No murmurs. LUNGS: Clear to auscultation. ABDOMEN: Soft, nontender, nondistended. EXTREMITIES: No edema. NEUROLOGIC: No focal deficits noted. CARDIOVASCULAR MEDICATIONS: Reviewed. LABORATORY DATA: Reviewed. Hemoglobin 14.6, creatinine 1.1. Telemetry monitoring revealed normal sinus rhythm. Myocardial perfusion imaging revealed severe anterior and apical scar. IMPRESSION: 1. Spontaneous coronary artery dissection of the left anterior descending and diagonal coronary arteries. 2. Severe left ventricular systolic dysfunction. 3. Presumed left ventricular thrombus. 4. Cerebrovascular accident. 5. Hypertension. 6. Hyperlipidemia. 7. Prior tobacco use. 8. History of tuberculosis, status post treatment. RECOMMENDATIONS: SPECT imaging today revealed severe scar of the anterior and apical solano. The patient would not benefit from revascularization at this point in time. Continue medical management for his heart failure and spontaneous coronary artery dissection, which is likely chronic given the extent of the ventricular dysfunction. Recommend Plavix and anticoagulation in the form of warfarin for the patient. Continue Coreg and start an angiotensin converting enzyme inhibitor. No need for transfer for revascularization at this point in time. The patient will need a LifeVest prior to discharge. Toy Grayson DO BM/MODL /[id number]
--- NOTE | 2018-07-08 20:00 | NUR ---
Received change of shift report from AM nurse. Walking rounds completed.
[2018-07-08] MEDS: ENOXAPARIN INJ 80 MG/0.8 ML SYR SC SCH (20:41)
[2018-07-08] MEDS: ATORVASTATIN 40 MG TAB PO SCH (20:41)
[2018-07-08 20:47] VITALS: BP 128/76
[2018-07-09] VITALS (7 sets, daily range): BP systolic 93–136; BP diastolic 57–88
--- NOTE | 2018-07-09 | NUR ---
Patient resting quitly with no c/o at this time.
--- NOTE | 2018-07-09 04:54 | NUR ---
Received change of shift report from AM nurse. Walking rounds completed.
[2018-07-09] MEDS ORDERED: Atorvastatin PO (07:01)
[2018-07-09] MEDS ORDERED: COREG3.125 MG PO (07:01)
[2018-07-09] MEDS ORDERED: PLAVIX75 MG PO (07:01)
[2018-07-09] MEDS ORDERED: CEFTIN PO (07:01)
[2018-07-09] MEDS ORDERED: MUCINEX DM ER1 EACH PO (07:01)
[2018-07-09] MEDS: ALBUTEROL/IPRATROPIUM 3 ML NEB NEB SCH ×3 (07:29→19:12)
[2018-07-09] MEDS: INSULIN REGULAR, HUMAN 100 UNIT/1 ML 3ML VIAL SQ SCH ×4 (07:30→19:54)
--- NOTE | 2018-07-09 07:30 | NUR ---
REC'D PT IN RECLINER CHAIR WITH NO S/S OF DISTRESS. FAMILY AT BEDSIDE.
[2018-07-09] MEDS: HYDROCHLOROTHIAZIDE 25 MG TAB PO SCH (08:37)
[2018-07-09] MEDS: FAMOTIDINE 20 MG TAB PO SCH ×2 (08:39→16:56)
[2018-07-09] MEDS: ENOXAPARIN INJ 80 MG/0.8 ML SYR SC SCH ×2 (08:40→21:00)
[2018-07-09] MEDS: GUAIFENESIN 600MG/DEXTROMETHORPHAN 30MG TABSR PO SCH ×2 (08:40→21:00)
[2018-07-09] MEDS: LISINOPRIL 10 MG TAB PO SCH (08:40)
[2018-07-09] MEDS: CARVEDILOL 3.125 MG TAB PO SCH ×2 (08:40→16:58)
[2018-07-09] MEDS: CLOPIDOGREL BISULFATE 75 MG TAB PO SCH (08:40)
[2018-07-09] MEDS: CEFTRIAXONE SOD 1 GM/NS 50 ML 50 ML IV SCH (08:44)
[2018-07-09 09:11] LABS: INR 1.54; PROTHROMBIN TIME 19.1 seconds (11.9-14.5)
--- NOTE | 2018-07-09 12:59 | NUR ---
Nutrition Screen Note RD Recommendation for Physician: Continue diet as ordered Plan of Care: RD following, monitoring for adequacy and tolerance Nutrition reason for involvement: LOS Primary Diagnose(s):CVA, elevated troponin Ht:69 in Wt:160lbs BMI:23.6 kg/m2 IBW:160lbs RD Assessment:(07/09/2018) Pt discharge may be delayed due to life vest. Pt is eating well and denies any N,V, D. Pt denies any difficulty chewing or swallowing. No wt changes. Current Diet: Cardiac Malnutrition Evaluation 07/09/2018 The patient does not meet criteria for a specified degree of malnutrition at this time. Will re-evaluate at follow-up as appropriate. Diet Education Needs Assessment: Diet education not indicated. Diet Adequacy: Meeting calorie needs, Meeting protein needs, Meeting fluid needs. Tolerance: Tolerating PO, Nutrition Care Level:naida Felipe RD, LD, [facility]
--- NOTE | 2018-07-09 14:02 | Progress Note ---
DATE: SUBJECTIVE: The patient is without any complaints. He states that he feels well. Denies any chest pain, shortness of breath, or palpitations. CARDIOVASCULAR MEDICATIONS: Plavix 75 mg p.o. daily, Lovenox 70 mg subcu q.12 hours, lisinopril 10 mg p.o. daily, Coreg 6.25 mg p.o. b.i.d., atorvastatin 40 mg p.o. at bedtime. LABORATORY DATA: PT 19.1, INR 1.54. OBJECTIVE: VITAL SIGNS: Temperature 96.0, pulse 74, respiratory rate 16, blood pressure 126/86, oxygen saturation 100% on room air. GENERAL: Alert and oriented x3. Resting comfortably in bed. Family at the bedside. Does not appear to be in any acute distress. NECK: Supple. No JVD noted. CARDIOVASCULAR: Regular rate and rhythm. Systolic murmur present. Normal S1, S2. ABDOMEN: Soft, nontender. LUNGS: Diminished breath sounds anterior lower lobes, otherwise clear to auscultation. EXTREMITIES: No edema. IMPRESSION: 1. Spontaneous coronary artery dissection of the left anterior descending and diagonal coronary arteries. 2. Severe left ventricular systolic dysfunction. 3. Presumed left ventricular thrombus. 4. Cerebrovascular accident. 5. Hypertension. 6. Hyperlipidemia. 7. History of tobacco use. 8. History of tuberculosis, status post treatment. RECOMMENDATIONS: Stress test imaging revealed severe scar on the anterior and apical solano. The patient would not benefit from revascularization at this time. Continue medical management for his heart failure and also spontaneous coronary artery dissection, which is likely chronic given the extent of ventricular dysfunction. Continue Plavix, aspirin, and also anticoagulation with warfarin. Dose of warfarin has been adjusted at this time. The patient is being prepared for discharge. Will need LifeVest upon discharge. This has been extensively discussed with the patient and complies reinforced. We will continue to follow very closely. He is to follow up with Dr. Grayson within one week upon discharge. Dictated by Joleen Jacob, DARRIUS Jaswant Rees MD JWV/MODL /[id number]
--- NOTE | 2018-07-09 15:39 | NUR ---
LIFE VEST FORMS HAVE BEEN FAXED TO [employer].
--- NOTE | 2018-07-09 16:00 | NUR ---
[facility] LIFE VEST MEDICAL ORDER FORM HAS BEEN CONFIRMED VIA FAX.
[2018-07-09] MEDS ORDERED: WARFARIN SOD 5 MG TAB PO SCH (17:00)
--- NOTE | 2018-07-09 17:25 | NUR ---
PT LAYING IN BED WITH NO S/S OF DISTRESS. DAUGHTER AT BEDSIDE. CALL RAIN WITHIN REACH FOR PT.
--- NOTE | 2018-07-09 18:46 | NUR ---
PT IS IN THE RECLINER WITH NO S/S OF DISTRESS. DAUGHTER AT BEDSIDE. CALL RAIN WITHIN REACH.
--- NOTE | 2018-07-09 19:37 | NUR ---
Received change of shift report from am nurse. Walking rounds completed. Patient up in bathroom. No noted pain or discomfort at this time.
[2018-07-09] MEDS: ATORVASTATIN 40 MG TAB PO SCH (21:00)
--- NOTE | 2018-07-10 | NUR ---
Patient AAOx3. Up ambulating in room with no conplaint if pain or sob.
[2018-07-10 00:26] VITALS: BP 99/65
[2018-07-10 04:41] VITALS: BP 105/64
[2018-07-10 06:28] LABS: BASOPHILS % 0.6 % (0.0-1.0); EOSINOPHILS # (AUTO) 0.5 (0.0-0.4); HEMATOCRIT 41.9 % (38.2-49.6); HEMOGLOBIN 14.3 g/dL (14.0-18.0); LYMPHOCYTES # (AUTO) 2.2 (1.0-3.2); LYMPHOCYTES % 31.2 % (18.0-39.1); MEAN CORPUSCULAR HEMOGLOBIN 30.9 pg (28-32); MEAN CORPUSCULAR HGB CONC 34.1 g/dL (31-35); MEAN CORPUSCULAR VOLUME 90.5 fL (81-99); MONOCYTES # (AUTO) 0.7 (0.2-0.8); MONOCYTES % 10.3 % (4.4-11.3); NEUTROPHILS # (AUTO) 3.6 (2.1-6.9); NEUTROPHILS % 50.6 % (38.7-80.0); PLATELET COUNT 211 x10e3/uL (140-360); RED BLOOD COUNT 4.63 x10e6/uL (4.3-5.7); RED CELL DISTRIBUTION WIDTH 12.6 % (11.7-14.4)
--- NOTE | 2018-07-10 06:37 | NUR ---
Patient resting well with no c/o at this timr
[2018-07-10 06:41] LABS: INR 1.86; PROTHROMBIN TIME 22.1 seconds (11.9-14.5)
[2018-07-10 06:48] LABS: ANION GAP 14.9 mmol/L (8-16); CALCIUM 9.4 mg/dL (8.4-10.2); CREATININE, SERUM 1.27 mg/dL (0.72-1.25); MAGNESIUM 2.3 MG/DL (1.3-2.1); POTASSIUM 3.9 mmol/L (3.5-5.1)
[2018-07-10] MEDS: ALBUTEROL/IPRATROPIUM 3 ML NEB NEB SCH ×3 (07:17→13:40)
[2018-07-10] MEDS: INSULIN REGULAR, HUMAN 100 UNIT/1 ML 3ML VIAL SQ SCH ×2 (07:30→12:17)
--- NOTE | 2018-07-10 07:30 | NUR ---
PT SITTING ON RECLINER CHAIR. PT ON RA FOR O2. NO S/S OF DISTRESS. CALL RAIN WITHIN REACH.
[2018-07-10 07:43] VITALS: BP 107/69
[2018-07-10] MEDS: GUAIFENESIN 600MG/DEXTROMETHORPHAN 30MG TABSR PO SCH (08:39)
[2018-07-10] MEDS: HYDROCHLOROTHIAZIDE 25 MG TAB PO SCH (08:40)
[2018-07-10] MEDS: CARVEDILOL 3.125 MG TAB PO SCH (08:40)
[2018-07-10] MEDS: CLOPIDOGREL BISULFATE 75 MG TAB PO SCH (08:40)
[2018-07-10] MEDS: LISINOPRIL 10 MG TAB PO SCH (08:42)
[2018-07-10] MEDS: FAMOTIDINE 20 MG TAB PO SCH (08:42)
[2018-07-10] MEDS: ENOXAPARIN INJ 80 MG/0.8 ML SYR SC SCH (08:42)
[2018-07-10] MEDS: CEFTRIAXONE SOD 1 GM/NS 50 ML 50 ML IV SCH (08:42)
[2018-07-10 10:23] VITALS: BP 107/69
[2018-07-10 11:12] VITALS: BP 103/67
--- NOTE | 2018-07-10 12:00 | NUR ---
PT APPROVED AND FITTED FOR LIFE VEST.
--- NOTE | 2018-07-10 14:30 | NUR ---
PT AND FAMILY WAS EDUCATED BY LIFE VEST [place] ON WEARING LIFE VEST. PT DISCHARGED HOME VIA AMBULATORY. FAMILY WITH HIM. IV REMOVED FROM RIGHT FA. NO COMPLICATIONS TO IV SITE. LIFE VEST WORN AT DISCHARGE TIME. NO S/S OF DISTRESS.
[2018-07-10] MEDS ORDERED: WARFARIN SODIU2.5 MG PO (14:55)
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
== END 2018-07-10 15:20 | disposition home or self-care (01) | DRG 250 ==
LOC: FSED 13:44 → ERHOLD 15:17 → ICU 17:41 → MED/SURG3 07-04 17:57
PROVIDERS: ADMIT Internal Medicine; ATTEND Internal Medicine
PROC: 0BD68ZX Extraction of Right Lower Lobe Bronchus, Via Natural or Artificial Opening Endoscopic, Diagnostic (ICD-10-PCS; principal; 2018-07-02)
PROC: 0BD38ZX Extraction of Right Main Bronchus, Via Natural or Artificial Opening Endoscopic, Diagnostic (ICD-10-PCS; 2018-07-02)
PROC: 02703ZZ Dilation of Coronary Artery, One Artery, Percutaneous Approach (ICD-10-PCS; 2018-07-07)
PROC: 4A023N7 Measurement of Cardiac Sampling and Pressure, Left Heart, Percutaneous Approach (ICD-10-PCS; 2018-07-07)
PROC: B2111ZZ Fluoroscopy of Multiple Coronary Arteries using Low Osmolar Contrast (ICD-10-PCS; 2018-07-07)
PROC: B2151ZZ Fluoroscopy of Left Heart using Low Osmolar Contrast (ICD-10-PCS; 2018-07-07)
DX: I25.42 Coronary artery dissection (principal); I63.411 Cerebral infarction due to embolism of right middle cerebral artery; G81.94 Hemiplegia, unspecified affecting left nondominant side; I50.22 Chronic systolic (congestive) heart failure; I24.0 Acute coronary thrombosis not resulting in myocardial infarction; A15.9 Respiratory tuberculosis unspecified; E87.5 Hyperkalemia; E83.41 Hypermagnesemia; I11.0 Hypertensive heart disease with heart failure; Z87.891 Personal history of nicotine dependence; J98.09 Other diseases of bronchus, not elsewhere classified; R91.8 Other nonspecific abnormal finding of lung field
CPT/HCPCS: 31623; 31625; 36415; 70450; 70551; 71045; 71046; 71250; 78452; 80048; 80053; 80061; 82550; 82553; 82948; 83036; 83735; 83880; 84100; 84443; 84484; 85025; 85610; 87116; 87186; 87205; 87206; 87335; 88112; 88305; 92920; 92973; 92978; 93005; 93017; 93306; 93454; 93880; 94640; 99284; A9502; C1769; C1887; J0696; J1644; J1650; J2001; J2250; J2370; J2405; J3430; J7030; J7050; Q9967